=== PATIENT | female | born 1975 | race Caucasian/White ===

== ENCOUNTER 2017-03-02 19:27 | Emergency (ER) | payer SELFPAY ==
[~2017-03-02 19:27] MED LIST: ABACAVIR300 M1; CYCLOBENZAPRINE5 M1 PO; HYDROCODON-ACE1 EA16 PO; LISINOPRIL-HCT1 EAC1 PO; LOPRESSOR50 M1 PO; MILK OF MAGNESIA PO; MIRALAX17 G2 PO; MOTRIN IB200 M1 PO; NAPROSYN500 M1 PO; NORCO 5-325 TA1 EACH PO; PREDNISONE10 M1; PROTONIX40 M2 PO; ZOLOFT100 M1 PO
[2017-03-02] MEDS ORDERED: SOMA350 M1 PO (21:14)
[2017-03-02] MEDS ORDERED: PREDNISONE20 M1 PO (21:38)
[2017-03-02] MEDS ORDERED: NORCO 5-325 TA1 EACH PO (21:38)
[2017-04-25] MEDS ORDERED: BELLADONNA PR (12:00)
[2017-04-25] MEDS ORDERED: DULCOLAX10 MG PO (12:01)
[2017-04-25] MEDS ORDERED: ACETAMINOPHEN650 MG PR (12:02)
[2017-04-25] MEDS ORDERED: PRINIVIL20 M1 PO (12:03)
[2017-04-25] MEDS ORDERED: FLONASE ALLERG9.9 ML (12:03)
[2017-04-25] MEDS ORDERED: CYMBALTA60 M1 PO (12:03)
[2017-04-25] MEDS ORDERED: PROPRANOLOL HCL10 M1 PO (12:03)
[2017-04-25] MEDS ORDERED: NEURONTIN300 M1 PO (12:04)
[2017-04-25] MEDS ORDERED: TYLENOL325 M2 PO (12:04)
[2017-04-25] MEDS ORDERED: PROAIR HFA8.5 GM INH (12:04)
[2017-04-25] MEDS ORDERED: TRAZODONE HCL50 M1 PO (12:04)
[2017-04-25] MEDS ORDERED: REMERON15 M1 PO (12:04)
[2017-04-26] MEDS ORDERED: ZANAFLEX4 M2 PO (14:05)
[2017-04-26] MEDS ORDERED: NUEDEXTA 20-101 EAC1 (14:17)
[2017-04-26] MEDS ORDERED: PERCOCET 10-321 EACH PO (16:03)
[2017-04-26] MEDS ORDERED: METOPROLOL TART25 M1 PO (18:03)
[2017-04-26] MEDS ORDERED: PREDNISONE10 M1 PO (18:09)
== END 2017-03-02 21:53 ==
LOC: EDMED 19:27
DX: M26.622 Arthralgia of left temporomandibular joint (principal); I10 Essential (primary) hypertension; J44.9 Chronic obstructive pulmonary disease, unspecified; F43.10 Post-traumatic stress disorder, unspecified; M19.90 Unspecified osteoarthritis, unspecified site; Z88.2 Allergy status to sulfonamides; F17.200 Nicotine dependence, unspecified, uncomplicated; Z79.899 Other long term (current) drug therapy
CPT/HCPCS: J2930